=== PATIENT | male | born 2000 | race Hispanic/Latino ===

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

== ENCOUNTER 2021-07-15 22:30 | Emergency (ER) | payer OTHER ==
[2021-07-15] MEDS ORDERED: Acetaminophen 500 MG TAB ONE (23:28)
[2021-07-15] MEDS ORDERED: Ondansetron ODT 8 MG TAB ONE (23:28)
== END 2021-07-16 00:04 | disposition home or self-care (01) ==
LOC: ERS 22:30
DX: S09.90XA Unspecified injury of head, initial encounter (principal); S30.0XXA Contusion of lower back and pelvis, initial encounter; S20.224A Contusion of middle back wall of thorax, initial encounter; W10.9XXA Fall (on) (from) unspecified stairs and steps, initial encounter
CPT/HCPCS: 70450; 72072; 72100; Q0162

== ENCOUNTER 2021-08-04 21:53 | Emergency (ER) | payer OTHER, SELFPAY ==
[2021-08-05 00:15] LABS: #Basophils 0.1 thou/uL (0.0-0.2); #Eosinphils 0.3 thou/uL (0.0-0.7); #Lymphocytes 3.5 thou/uL (1.20-3.40); #Monocytes 0.8 thou/uL (0.11-0.59); #Neutrophils 4.9 thou/uL (1.40-6.50); %Basophils 0.8 % (0.0-1.0); %Eosinophils 2.9 % (0.0-10.0); %Lymphocytes 36.8 % (21.0-51.0); %Monocytes 8.1 % (0.0-10.0); %Neutrophils 51.4 % (42.0-75.0); Hemoglobin 14.4 g/dL (14.0-18.0); Mean Corpuscular HGB CONC 32.3 g/dL (32.0-36.0); Mean Corpuscular Hemoglobin 28.4 pg (27.0-31.0); Mean Corpuscular Volume 87.8 fL (78.0-98.0); Mean Platelet Volume 8.4 fL (7.4-10.4); Platelet Count 259 thou/uL (130-400); RBC Distribution Width 12.3 % (11.5-14.5); Red Blood Cell (RBC) Count 5.07 mill/uL (4.70-6.10); White Blood Cell (WBC) Count 9.6 thou/uL (4.8-10.8)
[2021-08-05 00:32] LABS: ALT (SGPT) 52 U/L (8-55); AST (SGOT) 31 U/L (5-34); Albumin 4.4 g/dL (3.5-5.0); Alkaline Phosphatase 108 U/L (40-110); Anion Gap 12 mmol/L (10-20); BUN (Urea Nitrogen) 18 mg/dL (8.9-20.6); Bilirubin, Total 0.8 mg/dL (0.2-1.2); Calc. Creatinine Clearance 0 mL/min (70-130); Calcium 9.3 mg/dL (7.8-10.44); Carbon Dioxide 26 mmol/L (22-29); Chloride 105 mmol/L (98-107); Globulin 3.4 g/dL (2.4-3.5); Glucose 89 mg/dL (70-105); Potassium 3.9 mmol/L (3.5-5.1); Protein, Total 7.8 g/dL (6.0-8.3); Sodium 139 mmol/L (136-145)
[2021-08-05] MEDS ORDERED: Ondansetron ODT 4 MG TAB ONE (01:14)
== END 2021-08-05 01:18 | disposition home or self-care (01) ==
LOC: ERS 21:53
DX: R19.7 Diarrhea, unspecified (principal); R11.10 Vomiting, unspecified; R10.12 Left upper quadrant pain
CPT/HCPCS: 36415; 80053; 83690; 85025; 99284; Q0162

== ENCOUNTER 2023-01-20 17:31 | Emergency (ER) | payer BC ==
[2023-01-20] MEDS ORDERED: Ibuprofen 800 MG TAB ONE (18:12)
== END 2023-01-20 18:23 | disposition home or self-care (01) ==
LOC: ERS 17:31
DX: M79.632 Pain in left forearm (principal); I10 Essential (primary) hypertension; Z79.899 Other long term (current) drug therapy